=== PATIENT | male | born 1995 | race African-American/Black ===

== ENCOUNTER 2017-05-15 02:07 | Emergency (ER) | payer OTHER ==
[~2017-05-15 02:07] MED LIST: CLINDAMYCIN HC150 MG PO; NOHOMEMEDS; TAMIFLU75 MG PO; ZOFRAN4 MG PO
[2017-05-15 02:23] VITALS: BP 00/00
== END 2017-05-15 02:27 ==
LOC: EME → EDBD 02:07 → EME 02:07
DX: F10.129 Alcohol abuse with intoxication, unspecified (principal); F17.200 Nicotine dependence, unspecified, uncomplicated